=== PATIENT | male | born 1990 | race Two or more races ===

== ENCOUNTER 2018-12-08 08:12 | Emergency (ER) | payer OTHER ==
[~2018-12-08] VITALS: Ht 172.7 cm; Wt 90.7 kg
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
[2018-12-08] MEDS ORDERED: CEFTRIAXONE 500 MG VIAL IM ONE (09:00)
[2018-12-08] MEDS ORDERED: AZITHROMYCIN 250 MG TABLET PO ONE (09:00)
[2018-12-08] MEDS ORDERED: AZITHROMYCIN 250 MG TABLET ONE (09:02)
[2018-12-08] MEDS ORDERED: CEFTRIAXONE 500 MG VIAL ONE (09:02)
[2018-12-08] MEDS ORDERED: LIDOCAINE 1% INJ 50 ML MDV IJ ONE (09:03)
--- NOTE | 2018-12-08 09:25 | NUR ---
Patient discharged to home in stable condition. Written and verbal after care instructions given. Patient verbalizes understanding of instruction.
[2018-12-08 09:43] VITALS: BP 148/88
== END 2018-12-08 09:44 | disposition home or self-care (01) ==
LOC: ER 08:14
DX: A64 Unspecified sexually transmitted disease (principal); J45.909 Unspecified asthma, uncomplicated; Z60.2 Problems related to living alone
CPT/HCPCS: 36415; 87806; 96372; 99283; J0696; J3490

== ENCOUNTER 2018-12-15 22:16 | Emergency (ER) ==
[~2018-12-15] VITALS: Ht 175.3 cm; Wt 90.7 kg
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
--- NOTE | 2018-12-15 23:49 | NUR ---
CALLED [facility] TO HAVE AN OFFICER COME DOWN TO [facility] TO MAKE A REPORT, CASE #[id number] EXTRACTIONS TECHNOLOGIST #[id number]
--- NOTE | 2018-12-16 00:11 | NUR ---
DR. ROTHMAN AT BEDSIDE FOR EVAL.
--- NOTE | 2018-12-16 00:35 | NUR ---
PT IS WHEELED TO CT SCAN VIA [facility].
[2018-12-16] MEDS ORDERED: HYDROCODONE/APAP 5/325MG 1 EACH TABLET ONE (02:08)
[2018-12-16] MEDS ORDERED: IBUPROFEN 600 MG TABLET PO ONE ×3 (02:30→02:40)
[2018-12-16] MEDS ORDERED: TDAP [DIPH/PERTUSSIS/TET] 0.5 ML VIAL IM ONE ×2 (02:30→02:40)
[2018-12-16] MEDS ORDERED: HYDROCODONE/APAP 5/325MG 1 EACH TABLET PO ONE (02:30)
[2018-12-16 02:51] VITALS: BP 129/88
--- NOTE | 2018-12-16 02:51 | NUR ---
Patient discharged to home in stable condition. Written and verbal after care instructions given. Patient verbalizes understanding of instruction.
== END 2018-12-16 02:53 | disposition home or self-care (01) ==
LOC: ER 22:20
DX: S01.81XA Laceration without foreign body of other part of head, initial encounter (principal); S80.02XA Contusion of left knee, initial encounter; S80.01XA Contusion of right knee, initial encounter; S69.82XA Other specified injuries of left wrist, hand and finger(s), initial encounter; S69.81XA Other specified injuries of right wrist, hand and finger(s), initial encounter; J45.909 Unspecified asthma, uncomplicated; F41.9 Anxiety disorder, unspecified; F20.9 Schizophrenia, unspecified; Y04.0XXA Assault by unarmed brawl or fight, initial encounter; Y93.89 Activity, other specified; Y92.89 Other specified places as the place of occurrence of the external cause; Y99.8 Other external cause status
CPT/HCPCS: 70450-TC; 72125-TC; 72131-TC; 73100-TC; 73130-TC; 73564-TC; 90715

== ENCOUNTER 2019-05-03 10:11 | Emergency (ER) | payer SELFPAY ==
[~2019-05-03] VITALS: Ht 175.3 cm; Wt 87.5 kg
--- NOTE | 2019-05-03 10:33 | NUR ---
LLE pain x 4 weeks
--- NOTE | 2019-05-03 10:34 | NUR ---
patient not in any distress. no lower left extremity or right lower extremity edema noted. left leg feels slightly warmer to touch than right leg. Patient connected to the monitor. vital signs stable. no sob.
[2019-05-03] MEDS ORDERED: KETOROLAC TROMETHAMINE INJ 30 MG/ML VIAL IM ONE (11:00)
[2019-05-03] MEDS ORDERED: ACETAMINOPHEN ES 500 MG TABLET PO ONE (11:00)
[2019-05-03] MEDS ORDERED: ACETAMINOPHEN ES 500 MG TABLET ONE (11:10)
[2019-05-03] MEDS ORDERED: KETOROLAC TROMETHAMINE INJ 30 MG/ML VIAL ONE (11:10)
[2019-05-03 11:36] VITALS: BP 110/51
== END 2019-05-03 12:16 | disposition home or self-care (01) ==
LOC: ER 10:11
DX: L03.116 Cellulitis of left lower limb (principal); M79.662 Pain in left lower leg; J45.909 Unspecified asthma, uncomplicated; F41.9 Anxiety disorder, unspecified; F20.9 Schizophrenia, unspecified
CPT/HCPCS: 73590; 82962; 96372; 99283; J1885

== ENCOUNTER 2019-08-07 10:10 | Emergency (ER) | payer MEDICAID ==
[~2019-08-07] VITALS: Ht 175.3 cm; Wt 87.5 kg
[2019-08-07 10:19] VITALS: BP 132/73
[2019-08-07 10:56] LABS: BASOPHILS # (AUTO) 0.1 /CMM (0.0-0.2); BASOPHILS % (AUTO) 2.7 % (0.0-2.0); EOSINOPHILS % (AUTO) 4.5 % (0.0-6.0); HEMATOCRIT 51 % (39-51); HEMOGLOBIN 17.4 g/dL (13.5-17.5); LYMPHOCYTES # (AUTO) 1.3 /CMM (0.8-4.8); LYMPHOCYTES % (AUTO) 29.3 % (20.0-44.0); MEAN CORPUSCULAR HGB CONC 34 g/dl (31.0-36.0); MEAN CORPUSCULAR VOLUME 95 fL (80-96); MONOCYTES # (AUTO) 0.4 /CMM (0.1-1.30); NEUTROPHILS # (AUTO) 2.5 /CMM (1.8-8.9); NEUTROPHILS % (AUTO) 55.5 % (43.0-81.0); PLATELET COUNT (AUTO) 187 /CMM (150-450); RED BLOOD CELL COUNT(AUTO) 5.37 MIL/uL (4.5-6.0); WHITE BLOOD COUNT (AUTO) 4.4 K/uL (4.3-11.0)
[2019-08-07 11:04] LABS: CARBON DIOXIDE 34 mmol/L (21-32); CHLORIDE 100 mmol/L (98-107); GLUCOSE 95 mg/dL (74-106); POTASSIUM 4.9 mmol/L (3.5-5.1); SODIUM SERUM 140 mmol/L (136-145); UREA NITROGEN, BLOOD 11 mg/dL (7-18)
[2019-08-07 11:09] LABS: ALANINE AMINOTRANSFERASE 43 U/L (12-78); ALBUMIN 3.9 g/dL (3.4-5.0); ALKALINE PHOSPHATASE 73 U/L (46-116); ASPARTATE AMINOTRANSFERASE 35 U/L (15-37); BILIRUBIN,DIRECT 0.2 mg/dL (0.0-0.2); BILIRUBIN,TOTAL 0.8 mg/dL (0.2-1.0); LIPASE 307 U/L (73-393); TOTAL PROTEIN, SERUM 7.6 g/dL (6.4-8.2)
--- NOTE | 2019-08-07 11:15 | NUR ---
Patient awake alert denies c/c bilateral weakness no facila droop ,no slurr speech ,patient has good pedal pushes bilaterally swallow eval passed
--- NOTE | 2019-08-07 11:23 | NUR ---
Patient for DC home MD @ bedside regarding test result ,patient agrees to follow up PMD in 1 day
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
== END 2019-08-07 11:31 | disposition home or self-care (01) ==
LOC: ER 10:15
DX: R07.89 Other chest pain (principal); R42 Dizziness and giddiness; J45.909 Unspecified asthma, uncomplicated; F41.9 Anxiety disorder, unspecified; F20.9 Schizophrenia, unspecified
CPT/HCPCS: 36415; 80048-TC; 80076-TC; 83690-TC; 84484-TC; 85025-TC

== ENCOUNTER 2020-04-15 10:15 | Emergency (ER) | payer SELFPAY ==
[~2020-04-15] VITALS: Ht 175.3 cm; Wt 87.5 kg
[2020-04-15 10:35] VITALS: BP 152/98
[2020-04-15] MEDS ORDERED: ACETAMINOPHEN ES 500 MG TABLET ONE (10:48)
[2020-04-15] MEDS ORDERED: IBUPROFEN 600 MG TABLET ONE (10:48)
[2020-04-15] MEDS ORDERED: ACETAMINOPHEN ES 500 MG TABLET PO ONE (11:00)
[2020-04-15] MEDS ORDERED: IBUPROFEN 600 MG TABLET PO ONE (11:00)
== END 2020-04-15 10:59 | disposition home or self-care (01) ==
LOC: ER 10:21
DX: M79.18 Myalgia, other site (principal); M54.2 Cervicalgia; J45.909 Unspecified asthma, uncomplicated

== ENCOUNTER 2020-10-22 20:32 | Emergency (ER) | payer MEDICAID ==
[~2020-10-22] VITALS: Ht 175.3 cm; Wt 88.5 kg
[2020-10-22 20:36] VITALS: BP 134/78
[2020-10-22] MEDS ORDERED: KETOROLAC TROMETHAMINE INJ 60 MG/2 ML VIAL IM ONE (20:58)
[2020-10-22] MEDS: KETOROLAC TROMETHAMINE INJ 60 MG/2 ML VIAL IM ONE (21:00)
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
[2020-10-22] MEDS ORDERED: IBUP-1955 PO (21:42)
--- NOTE | 2020-10-22 21:59 | NUR ---
Patient discharged to home in stable condition. Written and verbal after care instructions given. Patient verbalizes understanding of instruction.pt. ambulatory with a steady gait
== END 2020-10-22 21:59 | disposition home or self-care (01) ==
LOC: ER 20:34
DX: S91.011A Laceration without foreign body, right ankle, initial encounter (principal); J45.909 Unspecified asthma, uncomplicated; F41.9 Anxiety disorder, unspecified; F20.9 Schizophrenia, unspecified; Z79.899 Other long term (current) drug therapy; V00.141A Fall from scooter (nonmotorized), initial encounter; Y93.I9 Activity, other involving external motion; Y92.89 Other specified places as the place of occurrence of the external cause; Y99.8 Other external cause status
CPT/HCPCS: 12002; 73610; 96372; 99283; A6403 ×2; J1885

== ENCOUNTER 2020-10-26 10:47 | Emergency (ER) | payer MEDICAID ==
[~2020-10-26] VITALS: Ht 175.3 cm; Wt 82.6 kg
[~2020-10-26 10:47] MED LIST: IBUP-1955 PO
[2020-10-26 10:59] VITALS: BP 128/81
== END 2020-10-26 12:10 | disposition home or self-care (01) ==
LOC: ER 10:51
DX: S91.011D Laceration without foreign body, right ankle, subsequent encounter (principal); J45.909 Unspecified asthma, uncomplicated; F41.9 Anxiety disorder, unspecified; F20.9 Schizophrenia, unspecified; Z79.899 Other long term (current) drug therapy; X58.XXXD Exposure to other specified factors, subsequent encounter

== ENCOUNTER → 2021-04-24 | Emergency (ER) | payer SELFPAY ==
[~2021-04-24] VITALS: Ht 175.3 cm; Wt 101.6 kg
[~2021-04-24] MED LIST changes: +AMOX500C2 PO; +AMOXICILLIN TRIHYDRATE 250 MG CAPSULE ONE; +AMOXICILLIN TRIHYDRATE 500 MG CAPSULE PO ONE; +LIDOCAINE 0.5% HCL 50 ML VIAL ONE; +TDAP [DIPH/PERTUSSIS/TET] 0.5 ML VIAL IM ONE
[2021-04-24 04:20] VITALS: BP 122/73
== END | disposition home or self-care (01) ==
LOC: ER 02:58
DX: S01.511A Laceration without foreign body of lip, initial encounter (principal); S61.215A Laceration without foreign body of left ring finger without damage to nail, initial encounter; J45.909 Unspecified asthma, uncomplicated; F41.9 Anxiety disorder, unspecified; F20.9 Schizophrenia, unspecified; Y04.0XXA Assault by unarmed brawl or fight, initial encounter; Y93.89 Activity, other specified; Y92.89 Other specified places as the place of occurrence of the external cause; Y99.8 Other external cause status
CPT/HCPCS: 12001; 40650; 99284; A6403; J3490

== ENCOUNTER 2021-05-30 03:39 | Emergency (ER) | payer MEDICAID ==
[~2021-05-30] VITALS: Ht 170.2 cm; Wt 74.8 kg
[~2021-05-30 03:39] MED LIST changes: -AMOXICILLIN TRIHYDRATE 250 MG CAPSULE ONE; -AMOXICILLIN TRIHYDRATE 500 MG CAPSULE PO ONE; -LIDOCAINE 0.5% HCL 50 ML VIAL ONE; -TDAP [DIPH/PERTUSSIS/TET] 0.5 ML VIAL IM ONE
--- NOTE | 2021-05-30 04:21 | NUR ---
PATIENT BIBLAPD PLACED ON HOLD, C/O SI WITH PLAN TO OB ON PILLS. PATIENT PLACED IN BED, BELONGINING PLACED IN LOCKER. PATIENT IS A/O X 4, R R EVEN AND UNLABORED, NO SOB NOTED. PATIENT WITH SITTER AT BEDSIDE.
[2021-05-30 05:34] LABS: BILIRUBIN,URINE SMALL (NEGATIVE); COLOR,URINE YELLOW (YELLOW); LEUKOCYTE ESTERASE ,URINE NEGATIVE (NEGATIVE); NITRITE, URINE NEGATIVE (NEGATIVE); PROTEIN,URINE 30 mg/dl (NEGATIVE); UGLUCOSE NEGATIVE (NEGATIVE); UROBILINOGEN,URINE 0.2 EU/dL (0.2)
[2021-05-30 05:38] LABS: BASOPHILS # (AUTO) 0.1 K/uL (0.0-0.2); BASOPHILS % (AUTO) 0.8 % (0.0-2.0); HEMATOCRIT 46 % (39-51); LYMPHOCYTES # (AUTO) 1.5 K/uL (0.8-4.8); LYMPHOCYTES % (AUTO) 18.5 % (20.0-44.0); MEAN CORPUSCULAR HGB CONC 35 g/dl (31.0-36.0); MEAN CORPUSCULAR VOLUME 93 fL (80-96); MONOCYTES # (AUTO) 0.9 K/uL (0.1-1.30); MONOCYTES % (AUTO) 10.2 % (2.0-12.0); NEUTROPHILS # (AUTO) 5.8 K/uL (1.8-8.9); NEUTROPHILS % (AUTO) 69.5 % (43.0-81.0); PLATELET COUNT (AUTO) 221 K/uL (150-450); RED BLOOD CELL COUNT(AUTO) 4.94 MIL/uL (4.5-6.0); WHITE BLOOD COUNT (AUTO) 8.3 K/uL (4.3-11.0)
[2021-05-30] MEDS ORDERED: OLANZAPINE 10 MG VIAL IM ONE ×2 (05:49→06:00)
[2021-05-30 06:04] LABS: CALCIUM, SERUM 8.9 mg/dL (8.5-10.1); CREATININE 1.2 mg/dL (0.6-1.3); POTASSIUM 3.9 mmol/L (3.5-5.1)
[2021-05-30 06:11] LABS: ALBUMIN 4.4 g/dL (3.4-5.0); BILIRUBIN,DIRECT 0.2 mg/dL (0.0-0.2); BILIRUBIN,TOTAL 0.7 mg/dL (0.2-1.0); TOTAL PROTEIN, SERUM 8.4 g/dL (6.4-8.2)
[2021-05-30 06:52] LABS: BACTERIA,URINE Rare /HPF (None Seen); RBC,URINE 0-2 /HPF (0-2); SQUAMOUS EPITHELIAL CELL,UR Few /HPF (None Seen)
--- NOTE | 2021-05-30 09:57 | NUR ---
ASSESSED PT ON BED ASLEEP, EASILY AROUSABLE, NOT IN RESPIRATORY DISTRESS, V/S STABLE, KEPT RESTED AND COMFORTABLE. WILL CONTINUE TO MONITOR.
--- NOTE | 2021-05-30 12:10 | NUR ---
ASSESSED PT ON BED AWAKE AND ALERT, V/S STABLE. LUNCH TRAY PROVIDED. PT STATED HE IS NOT SUICIDAL JUST WANT TO GO VOLUNTARY PSYCH ADMISSION FOR PSYCH HELP.
[2021-05-30 14:50] VITALS: BP 128/82
--- NOTE | 2021-05-30 15:40 | NUR ---
JUAN CARLOS RN AT BEDSIDE FOR EVAL AND NO 5150 HOLD DOCUMENT ON CHART.
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
--- NOTE | 2021-05-30 18:20 | NUR ---
[facility] INTAKE CALL HOUSE SUP STATED PT DOESNT MEET CRITERIA FOR ADMISSION PT DENYING SI/HI.
--- NOTE | 2021-05-30 18:31 | NUR ---
Patient eloped from facility. ER MD notified.
== END 2021-05-30 18:32 | disposition left against medical advice (07) ==
LOC: ER 03:42
DX: F22 Delusional disorders (principal); J45.909 Unspecified asthma, uncomplicated; F20.9 Schizophrenia, unspecified; Z20.822 Contact with and (suspected) exposure to COVID-19; Z53.29 Procedure and treatment not carried out because of patient's decision for other reasons; F41.9 Anxiety disorder, unspecified
CPT/HCPCS: 36415; 80048; 80076; 80143; 80307; 80320; 81001; 85025; 87426; 96372; 99285; C9803; J3490; G0480